=== PATIENT | female | born 1990 | race Two or more races ===

== ENCOUNTER 2020-01-03 21:36 | Emergency (ER) | payer SELFPAY ==
[~2020-01-03] VITALS: Ht 152.4 cm; Wt 70.0 kg
[2020-01-03 21:52] VITALS: BP 111/60
[2020-01-03] MEDS ORDERED: ACET500T68 PO (22:23)
[2020-01-03] MEDS ORDERED: DIPH25CA58 PO (22:23)
--- NOTE | 2020-01-03 22:23 | PHYS DOC ---
Past Medical History Past Medical History: No Pertinent History (JAGJIT MAYERS STITCH RUBBER) Past Surgical History: No Surgical History (JAGJIT MAYERS STITCH RUBBER) Smoking Status: Never Smoker Alcohol Use: None (JAGJIT MAYERS APRN) General Adult EDM: Chief Complaint: HEADACHE HPI: HPI: Patient is a 29 year old female who presents with is 31 weeks with her third baby. She states the last couple days she has been having frontal lobe headaches that come and go. She states that she has been taking 1 Tylenol a day. She states she currently has no pain. She states when the headache hits it will be a 10 out of 10. She states the Tylenol does help slightly. She states she is very stressed because she has 2 other kids at home that have school virtually every day. She states she has a OB appointment next week. She states that she will call Monday and try to be seen sooner. She states that she has a normal healthy and she takes no medications daily and she has no past medical history. Patient denies numbness or tingling, blurred vision, naus ea, vomiting, abdominal pain, back pain, urinary symptoms, shortness of breath, chest pain, diaphoresis. (JAGJIT MAYERS STITCH RUBBER) Review of Systems: Review of Systems: Constitutional: Denies fever or chills. [] Eyes: Denies change in visual acuity. [] HENT: Denies nasal congestion or sore throat. [] Respiratory: Denies cough or shortness of breath. [] Cardiovascular: Denies chest pain or edema. [] GI: Denies abdominal pain, nausea, vomiting, bloody stools or diarrhea. [] : Denies dysuria. [] Musculoskeletal: Denies back pain or joint pain. [] Integument: Denies rash. [] Neurologic: + Intermittent headache, denies focal weakness or sensory changes. [] Endocrine: Denies polyuria or polydipsia. [] Lymphatic: Denies swollen glands. [] Psychiatric: Denies depression or anxiety. [] (JAGJIT MAYERS STITCH RUBBER) Heart Score: Risk Factors: Risk Factors: DM, Current or recent (<one month) smoker, HTN, HLP, family history of CAD, obesity. Risk Scores: Score 0 - 3: 2.5% MACE over next 6 weeks - Discharge Home Score 4 - 6: 20.3% MACE over next 6 weeks - Admit for Clinical Observation Score 7 - 10: 72.7% MACE over next 6 weeks - Early Invasive Strategies (JAGJIT MAYERS APRN) Physical Exam: PE: Constitutional: Well developed, well nourished, no acute distress, non-toxic appearance. [] HENT: Normocephalic, atraumatic, bilateral external ears normal, oropharynx moist, no oral exudates, nose normal. [] Eyes: PERRLA, EOMI, conjunctiva normal, no discharge. [] Neck: Normal range of motion, no tenderness, supple, no stridor. [] Cardiovascular:Heart rate regular rhythm, no murmur [] Lungs & Thorax: Bilateral breath sounds clear to auscultation [] Abdomen: Bowel sounds normal, soft, no tenderness, no masses, no pulsatile masses. [] Skin: Warm, dry, no erythema, no rash. [] Back: No tenderness, no CVA tenderness. [] Extremities: No tenderness, no cyanosis, no clubbing, ROM intact, no edema. [] Neurologic: Alert and oriented X 3, normal motor function, normal sensory function, no focal deficits noted. [] Psychologic: Affect normal, judgement normal, mood normal. Normal physical exam [] (JAGJIT MAYERS STITCH RUBBER) Current Patient Data: Vital Signs: Vital Signs Date Time Temp Pulse Resp B/P (MAP) Pulse Ox O2 Delivery O2 Flow Rate FiO2 01/03/20 21:52 98.7 100 20 111/60 (77) Room Air 98.0 98.7 (JAGJIT MAYERS STITCH RUBBER) EKG: EKG: [] (JAGJIT MAYERS STITCH RUBBER) Radiology/Procedures: Radiology/Procedures: [] [facility] Course & Med Decision Making: Course & Med Decision Making Pertinent Labs and Imaging studies reviewed. (See chart for details) See HPI. Patient has no swelling in her extremities. Vital signs are within normal limits. PERRLA. Speaks in full clear sentences. Alert and oriented x4. Lungs are clear to auscultation all lobes. Her eyes are bloodshot. Patient denies any nasal congestion, fevers, dizziness. Patient is educated that she can take at 1000 mg of Tylenol 3 times a day. Patient states that she was prescribed [place] for pain but she is unable to pay for it. Patient states that she will take Tylenol as needed and she can take Benadryl at night for sleep. Patient is stable and in no distress. [] (JAGJIT MAYERS APRN) Dragon Disclaimer: Dragon Disclaimer: This electronic medical record was generated, in whole or in part, using a voice recognition dictation system. (JAGJIT MAYERS APRN) Departure Departure Impression: Primary Impression: headache Qualified Codes: O26.899 - Other specified related conditions, unspecified trimester; R51.9 - Headache, unspecified Disposition: 01 DC HOME SELF CARE/HOMELESS Condition: STABLE Patient Instructions: General Headache Without Cause Additional Instructions: Follow-up with your OB doctor as soon as possible. Take that occasion as prescribed. Drink plenty of fluids. If you begin having numbness or tingling o n one side of your body or weakness return to the emergency room or call 911. Scripts Diphenhydramine Hcl (BENADRYL) 25 Mg Capsule 1 CAP PO QHS for 30 Days, #30 CAP 0 Refills Prov: JAGJIT MAYERS APRN 01/03/20 Acetaminophen (ACETAMINOPHEN) 500 Mg Tablet 1 TAB PO PRN Q6HRS PRN for pain or fever for 15 Days, #60 TAB 0 Refills Prov: JAGJIT MAYERS APRN 01/03/20 Attending Signature Attending Signature I have reviewed the PA/ENGRAVER LETTER's note and plan of care. I was available for consultation as needed during the patient's visit in the emergency department. I agree with the clinical impression, plan, and disposition. (SIDNEY CARSON DO) JAGJIT MAYERS APRN Jan 03, 2020 22:23 SIDNEY CARSON DO Jan 03, 2020 23:10
== END 2020-01-03 22:53 | disposition home or self-care (01) ==
LOC: ER 21:36
DX: O26.893 Other specified pregnancy related conditions, third trimester (principal); R51.9 Headache, unspecified; Z3A.31 31 weeks gestation of pregnancy
CPT/HCPCS: 99282